=== PATIENT | female | born 1975 | race Two or more races ===

== ENCOUNTER 2020-11-04 22:09 | Emergency (ER) | payer OTHER ==
[~2020-11-04] VITALS: Ht 167.6 cm; Wt 89.8 kg
[2020-11-04] MEDS ORDERED: PROAIR HFA8.5 GM (22:21)
[2020-11-05] MEDS ORDERED: PROAIR RESPICL90 MCG IH (04:12)
[2020-11-05] MEDS ORDERED: SYMBICORT 16010.2 GM IH (04:12)
[2020-11-05] MEDS ORDERED: MUCINEX DM ER1 EAC1 PO (04:12)
[2020-11-05] MEDS ORDERED: PROTONIX20 MG PO (04:12)
== END 2020-11-05 04:23 | disposition home or self-care (01) ==
LOC: ER 22:09
DX: J45.998 Other asthma (principal); R06.02 Shortness of breath; R50.9 Fever, unspecified; Z11.52 Encounter for screening for COVID-19

== ENCOUNTER 2020-11-25 15:29 | Emergency (ER) | payer OTHER ==
[~2020-11-25] VITALS: Ht 167.6 cm; Wt 89.8 kg
[~2020-11-25 15:29] MED LIST: MUCINEX DM ER1 EAC1 PO; PROAIR HFA8.5 GM; PROAIR RESPICL90 MCG IH; PROTONIX20 MG PO; SYMBICORT 16010.2 GM IH
[2020-11-25] MEDS ORDERED: BENZONATATE200 M1 PO (15:45)
[2020-11-25] MEDS ORDERED: BUTALB-ACETAMI1 EACH PO (19:18)
[2020-11-25] MEDS ORDERED: DICLOFENAC SODI75 MG PO (19:18)
[2020-11-25] MEDS ORDERED: COZAAR50 MG PO (19:18)
== END 2020-11-25 19:56 | disposition home or self-care (01) ==
LOC: ER 15:29
DX: R51.9 Headache, unspecified (principal)

== ENCOUNTER 2021-01-02 12:45 | Emergency (ER) | payer OTHER ==
[~2021-01-02] VITALS: Ht 167.6 cm; Wt 85.3 kg
[~2021-01-02 12:45] MED LIST changes: +BENZONATATE200 M1 PO; +BUTALB-ACETAMI1 EACH PO; +COZAAR50 MG PO; +DICLOFENAC SODI75 MG PO
== END 2021-01-02 16:46 | disposition home or self-care (01) ==
LOC: ER 12:45
DX: R05 Cough (principal)

== ENCOUNTER 2022-03-28 18:04 | Emergency (ER) | payer OTHER ==
[~2022-03-28] VITALS: Ht 170.2 cm; Wt 81.6 kg
== END 2022-03-28 23:10 | disposition home or self-care (01) ==
LOC: ER 18:04
DX: R05.9 Cough, unspecified (principal); Z20.822 Contact with and (suspected) exposure to COVID-19; Z88.0 Allergy status to penicillin

== ENCOUNTER 2022-07-27 17:13 | Emergency (ER) | payer OTHER ==
[~2022-07-27] VITALS: Ht 167.6 cm; Wt 81.6 kg
[2022-07-27] MEDS ORDERED: BUDESONIDE0.5 MG/2 M IH (20:16)
[2022-07-27] MEDS ORDERED: MUCINEX1200 MG PO (20:16)
[2022-07-27] MEDS ORDERED: ALBUTEROL2.5 MG/3 M IH (20:16)
== END 2022-07-27 20:39 | disposition home or self-care (01) ==
LOC: ER 17:13
DX: J45.901 Unspecified asthma with (acute) exacerbation (principal); Z20.822 Contact with and (suspected) exposure to COVID-19; Z88.0 Allergy status to penicillin

== ENCOUNTER 2024-10-27 11:14 | Emergency (ER) | payer OTHER ==
[~2024-10-27] VITALS: Ht 167.6 cm; Wt 77.1 kg
[~2024-10-27 11:14] MED LIST changes: +ALBUTEROL2.5 MG/3 M IH; +BUDESONIDE0.5 MG/2 M IH; +MUCINEX1200 MG PO
[2024-10-27] MEDS ORDERED: SINGULAIR5 MG PO (11:41)
[2024-10-27] MEDS ORDERED: BUDESONIDE 0.5 MG/2 ML AMPUL.NEB IH STA (13:10)
[2024-10-27] MEDS ORDERED: LEVALBUTEROL HCL 1.25 MG/3 ML SOLUTION IH STA (13:11)
[2024-10-27] MEDS ORDERED: METHYLPREDNISOLONE SOD SUCC 125 MG VIAL IM STA (13:12)
[2024-10-27] MEDS ORDERED: HYDROCODONE/CHLORPHEN P-STIREX 5 ML ML PO STA (13:13)
[2024-10-27] MEDS ORDERED: METHYLPREDNISOLONE SOD SUCC 125 MG VIAL ONE (13:25)
[2024-10-27] MEDS ORDERED: LEVALBUTEROL HCL 1.25 MG/3 ML SOLUTION IH ONE (14:20)
[2024-10-27] MEDS ORDERED: BUDESONIDE 0.5 MG/2 ML AMPUL.NEB IH ONE (14:20)
[2024-10-27 14:39] LABS: HEMOGLOBIN 13.2 g/dL (11.2-15.7); RED BLOOD COUNT 4.74 M/uL (3.93-5.22)
[2024-10-27 14:40] LABS: BASO % 0.6 % (0.1-1.2); EOS # 0.27 (0.04-0.54); EOS % 4.1 % (0.7-7.0); HEMATOCRIT 40.3 % (34.1-44.9); LYMPH # 1.44 (1.18-3.74); LYMPH % 22.1 % (19.3-53.1); MEAN CORPUSCULAR HEMOGLOBIN 27.8 pg (25.6-32.2); MONO # 0.69 (0.24-0.82); MONO % 10.6 % (4.7-12.5); NEUT # 4.08 (1.56-6.13); NEUT % 62.4 % (34.0-71.1); PLATELET COUNT 269 K/uL (163-369); RED CELL DISTRIBUTION WIDTH 13.6 % (11.6-14.4)
[2024-10-27 14:50] LABS: COVID-19 AG NEGATIVE (NEGATIVE)
[2024-10-27 14:51] LABS: INFLUENZA A AG NEGATIVE (NEGATIVE)
== END 2024-10-27 15:31 | disposition home or self-care (01) ==
LOC: ER 11:27
PROVIDERS: General Practice
DX: J45.909 Unspecified asthma, uncomplicated (principal); Z20.822 Contact with and (suspected) exposure to COVID-19; Z88.0 Allergy status to penicillin